=== PATIENT | male | born 1950 | race Caucasian/White ===

== ENCOUNTER → 2016-10-01 | Day surgery (SDC) | payer BC, OTHER ==
[2016-09-18 11:07] VITALS: Ht 170.2 cm; Wt 80.0 kg
[~2016-10-01] VITALS: Ht 170.2 cm; Wt 80.0 kg
[~2016-10-01] MED LIST: 500ML BSS 0.3ML EPI 1:1000PF IRRIG ONE; ACETAMINOPHEN 325 MG TAB PO PRN; AMVISC PLUS 0.8ML SYRINGE INT OCU ONE; ATROPINE SULFATE 0.1 MG/ML 5ML SYR IV PRN; BRIMONIDINE TART 0.2% OP SOLN PER DROP CHARGE ONE; BSS FLUSH ONE; ENDOCOAT 0.85ML SYRINGE INT OCU ONE; EpHEDrine SULFATE INJ 50 MG/ML AMP IV PRN; EpINEphrine INJ 1MG/ML AMP 1 MG/ML AMP ONE; LACTATED RINGER'S 1000ML 500 ML IV SCH; LIDOCAINE 4% OP SOLN DROP CHARGE ONE; LIDOCAINE 4% OP SOLN DROP CHARGE OPR SCH; LIDOCAINE HCL 1% MPF 2 ML VIAL ONE; MIDAZOLAM HCL 1 MG/ML 2ML VIAL ONE; MIX: 3ML BSS AND 1ML EPI(PF) TOP ONE; MOXIFLOXACIN OPH SOLN PER DROP CHARGE ONE; POTA99TA3 PO; POVIDONE-IODINE OP SOLN 30 ML BTL ONE; PROPARACAINE 0.5% OP SOLN PER DROP CHARGE OPR SCH; PROPARACAINE HCL 0.5% OP SOLN 15 ML BTL OPR ONE; TAMS0.4C38 PO; TOBRAMYCIN/DEXAMETHASONE OPH OINT PER APPLN CHARGE ONE
[2016-10-01] MEDS: PHENYLEPHRINE HCL 2.5% OP SOLN PER DROP CHARGE OPR SCH ×2 (09:30→09:35)
[2016-10-01] MEDS: TROPICAMIDE 1% OP SOLN PER DROP CHARGE OPR SCH ×2 (09:31→09:36)
[2016-10-01] MEDS: CYCLOPENTOLATE HCL 1% OP SOLN PER DROP CHARGE OPR SCH ×2 (09:32→09:37)
[2016-10-01] MEDS: KETOROLAC 0.5% OP SOLN PER DROP CHARGE OPR SCH ×2 (09:33→09:38)
[2016-10-01] MEDS: MOXIFLOXACIN OPH SOLN PER DROP CHARGE OPR SCH ×2 (09:34→09:44)
--- NOTE | 2016-10-01 10:24 | History & Physical Bridge - [place] ---
H&P Re-Evaluation Bridge Note: I have examined the patient, reviewed the History & Physical and in the interval since the performance of the History & Physical I have noted the following changes of clinical significance: No changes noted
--- NOTE | 2016-10-01 11:36 | [facility] Post Operative Brief Note ---
Immediate Operative Summary Operative Date Oct 01, 2016. Pre-Operative Diagnosis Cataract Right Eye Post-Operative Diagnosis Same Procedure(s) Performed Right Cataract Phacoemulsification With Intraocular Lens Implant; Toric Lens Surgeon Dr. Driscoll Bookkeeping Service Sales Agent Surgeon(s) None Estimated Blood Loss 0 mL Findings cataract right eye Specimens None Complication(s) None Disposition Recovery Room / PACU
--- NOTE | 2016-10-01 11:36 | Discharge Instructions-SurgCtr ---
Discharge Instructions Visit Reason for Visit: Cataract Right Eye Discharge Discharge Diagnosis / Problem: cataract right eye Discharge Goals Goal(s): Improve function Activity Recommendations Activity Limitations: per Instructions/Follow-up section Lifting Limitations: no more than 5 pounds Anesthesia . Post Anesthesia Instructions: If you have had General Anesthesia or IV Sedation: * Do not drive today. * Resume driving when surgeon permits. * Do not make important decisions or sign legal documents today. * Call surgeon for: 1. Temperature elevations greater than 101 degrees F. 2. Uncontrollable pain. 3. Excessive bleeding. 4. Persistent nausea and vomiting. 5. Medication intolerance (nausea, vomiting or rash). * For nausea and vomiting use only clear liquids such as: tea, soda, bouillon until nausea subsides, then gradually increase diet as tolerated. * If you have any concerns or questions, call your surgeon's office. If physician is unavailable and it is an emergency, call 911 or go to the nearest emergency room. . Instructions / Follow-Up Instructions / Follow-Up ACTIVITY RECOMMENDATIONS: * Light activities * You may walk outside, read, watch television. * Mild irritation and blurred vision are common for the first few days, redness around the white part of the eye is common. MEDICATIONS: Resume previous medications unless instructed otherwise by your surgeon. Eye drops (today and tomorrow): Gatifloxacin - one drop in operative eye every 2 hours while awake Prednisolone 1% - one drop in operative eye every 2 hours while awake Bromfenac - one drop in operative eye once daily SPECIAL CARE INSTRUCTIONS: * If any problems or concerns, please call Dr. Driscoll's office at . * Keep plastic shield taped over eye to sleep at night. * Keep plastic shield taped over eye except to administer eye drops. * Keep plastic shield on until office visit the following day. FOLLOW UP VISIT: Follow-up with Dr. Driscoll in the [place] office as scheduled. If not already scheduled, please call the office at . Diet Recommendations Home Diet: resume previous diet Procedures Procedures Performed: Right Cataract Phacoemulsification With Intraocular Lens Implant; Toric Lens Pending Studies Studies pending at discharge: no Medical Emergencies . Who to Call and When: Medical Emergencies: If at any time you feel your situation is an emergency, please call 911 immediately. . Non-Emergent Contact Non-Emergency issues call your: Landscape Architect And Planner . . "Provider Documentation" section prepared by Gorge Driscoll.
[2016-10-01 11:38] VITALS: TEMP 36.6
[2016-10-01 11:59] VITALS: BP 119/83; PULSE 58; O2SAT 99
--- NOTE | 2016-10-01 11:59 | Anesthesia Progress Nt - [facility] ---
Anesthesia Post Op Note Date & Time Oct 01, 2016 at 11:59 Vital Signs Pain Intensity: 0 Vital Signs Past 12 Hours Date Time Temp Pulse Resp B/P Pulse Ox O2 Delivery O2 Flow Rate FiO2 10/01/16 11:38 36.6 53 16 121/82 97 Room Air 10/01/16 11:03 60 16 140/96 98 Room Air 10/01/16 10:57 57 16 145/88 99 Room Air 10/01/16 09:25 36.6 69 18 131/94 96 Room Air Notes Mental Status: alert / awake / arousable, participated in evaluation Pt Amnestic to Procedure: Yes Nausea / Vomiting: adequately controlled Pain: adequately controlled Airway Patency, RR, SpO2: stable & adequate BP & HR: stable & adequate Hydration State: stable & adequate Anesthetic Complications: no major complications apparent
--- NOTE | 2016-10-01 11:59 | OPERATIVE REPORT ---
DATE OF OPERATION: 10/01/2016 PREOPERATIVE DIAGNOSES: Cataract and astigmatism, right eye. POSTOPERATIVE DIAGNOSES: Same. PROCEDURE PERFORMED: Phacoemulsification cataract extraction with Toric intraocular lens placement and femtosecond laser, right eye. COMPLICATIONS: None. ESTIMATED BLOOD LOSS: None. ANESTHESIA: Local with sedation. DESCRIPTION OF PROCEDURE: After informed consent was obtained in the holding area, the patient was taken to the femtosecond laser room, where the right eye was docked with the laser. The primary incision as well as the capsulorrhexis and prechop of the lens were completed by the femtosecond laser on the right eye. Primary incision was made at the 9 o'clock position of the patient's right eye. The patient was then taken to the operating room, where cardiac monitoring leads and oxygen by nasal cannula was administered by anesthesia. Gentle IV sedation was given and the patient's right eye was prepped and draped in the usual sterile fashion. A wire lid speculum was placed in the right eye and the operating microscope swung into position. Using 0.12 forceps and a supersharp blade, a paracentesis port was made at the 11 o'clock position of the patient's right eye. 1% nonpreserved lidocaine was injected into the anterior chamber for anesthesia. A 2.0-mm keratome blade was then used to enter the primary incision plane. A Leo spatula was ineffective at entering the femtosecond laser tract. EndoCoat and Amvisc were placed in the eye in a soft shell fashion and the free floating capsulorrhexis cap was removed with Utrata forceps. The BSS and hydrodissection cannula was then used to hydrodissect the lens nucleus away from the capsular bag. The phacoemulsification handpiece was then used in a stop and chop fashion to remove the lens nucleus. Irrigation aspiration handpiece was then used to remove the residual cortical material. The eye was then filled with Amvisc and an BRENDEN [id number], 18.5 Diopter intraocular lens was injected into the capsular bag. The primary incision was then hydrated and irrigation-aspiration handpiece was used to remove the viscoelastic material from the eye. At the conclusion of viscoelastic material removal, the lens was aligned along the 60 degree axis of the patient's right eye with the boss made in the preop. It should be noted that a mixture of 1 mL of nonpreserved epinephrine and 3 mL of BSS was injected into the eye at the beginning of the case to aid with pupillary dilation. At the conclusion, the wound was noted to be watertight. Wire lid speculum was removed from the eye. Vigamox, brimonidine and TobraDex ointment were placed on the eye and the eye was shielded. The patient tolerated the procedure well and was taken to recovery area in stable condition. I attest to the content of the Intraoperative Record and any orders documented therein. Any exceptions are noted below. MTDD
== END | disposition home or self-care (01) ==
LOC: X.SURG 09:10
PROVIDERS: ATTEND Ophthalmology
DX: H26.9 Unspecified cataract (principal); H52.201 Unspecified astigmatism, right eye; Z87.442 Personal history of urinary calculi

== ENCOUNTER → 2017-07-15 | Day surgery (SDC) | payer BC ==
[2017-06-21 11:17] VITALS: Ht 170.2 cm; Wt 79.5 kg
[~2017-07-15] VITALS: Ht 170.2 cm; Wt 79.5 kg
[~2017-07-15] MED LIST changes: +LIDOCAINE 4% OP SOLN DROP CHARGE OPL SCH; -LIDOCAINE 4% OP SOLN DROP CHARGE OPR SCH; +PROPARACAINE 0.5% OP SOLN PER DROP CHARGE OPL SCH; -PROPARACAINE 0.5% OP SOLN PER DROP CHARGE OPR SCH; +PROPARACAINE HCL 0.5% OP SOLN 15 ML BTL OPL ONE; -PROPARACAINE HCL 0.5% OP SOLN 15 ML BTL OPR ONE
[2017-07-15] MEDS: PHENYLEPHRINE HCL 2.5% OP SOLN PER DROP CHARGE OPL SCH ×2 (13:20→13:27)
[2017-07-15] MEDS: TROPICAMIDE 1% OP SOLN PER DROP CHARGE OPL SCH ×2 (13:21→13:28)
[2017-07-15] MEDS: CYCLOPENTOLATE HCL 1% OP SOLN PER DROP CHARGE OPL SCH ×2 (13:23→13:29)
[2017-07-15] MEDS: KETOROLAC 0.5% OP SOLN PER DROP CHARGE OPL SCH ×2 (13:24→13:30)
[2017-07-15] MEDS: MOXIFLOXACIN OPH SOLN PER DROP CHARGE OPL SCH ×2 (13:25→13:31)
[2017-07-15 15:16] VITALS: TEMP 36.6
--- NOTE | 2017-07-15 15:16 | Discharge Instructions-SurgCtr ---
Discharge Instructions Date of Service Jul 15, 2017. Visit Reason for Visit: Cataract Left Eye Discharge Discharge Diagnosis / Problem: cataract left eye Discharge Goals Goal(s): Improve function Activity Recommendations Activity Limitations: per Instructions/Follow-up section Lifting Limitations: no more than 5 pounds Anesthesia . Post Anesthesia Instructions: If you have had General Anesthesia or IV Sedation: * Do not drive today. * Resume driving when surgeon permits. * Do not make important decisions or sign legal documents today. * Call surgeon for: 1. Temperature elevations greater than 101 degrees F. 2. Uncontrollable pain. 3. Excessive bleeding. 4. Persistent nausea and vomiting. 5. Medication intolerance (nausea, vomiting or rash). * For nausea and vomiting use only clear liquids such as: tea, soda, bouillon until nausea subsides, then gradually increase diet as tolerated. * If you have any concerns or questions, call your surgeon's office. If physician is unavailable and it is an emergency, call 911 or go to the nearest emergency room. . Instructions / Follow-Up Instructions / Follow-Up ACTIVITY RECOMMENDATIONS: * Light activities * You may walk outside, read, watch television. * Mild irritation and blurred vision are common for the first few days, redness around the white part of the eye is common. MEDICATIONS: Resume previous medications unless instructed otherwise by your surgeon. Eye drops (today and tomorrow): Gatifloxacin - one drop in operative eye every 2 hours while awake Prednisolone 1% - one drop in operative eye every 2 hours while awake Bromfenac - one drop in operative eye once daily SPECIAL CARE INSTRUCTIONS: * If any problems or concerns, please call Dr. Driscoll's office at . * Keep plastic shield taped over eye to sleep at night. * Keep plastic shield taped over eye except to administer eye drops. * Keep plastic shield on until office visit the following day. FOLLOW UP VISIT: Follow-up with Dr. Driscoll in the [place] office as scheduled. If not already scheduled, please call the office at . Diet Recommendations Home Diet: resume previous diet Procedures Procedures Performed: Left Cataract Phacoemulsification With Intraocular Lens Implant; Toric Lens Pending Studies Studies pending at discharge: no Medical Emergencies . Who to Call and When: Medical Emergencies: If at any time you feel your situation is an emergency, please call 911 immediately. . Non-Emergent Contact Non-Emergency issues call your: Parachute Repairer . . "Provider Documentation" section prepared by Gorge Driscoll. .
--- NOTE | 2017-07-15 15:21 | [facility] Operative Report ---
Operative Report Operative Date Jul 15, 2017. Pre-Operative Diagnosis Cataract Left Eye Post-Operative Diagnosis Same Procedure(s) Performed Left Cataract Phacoemulsification With Intraocular Lens Implant; Toric Lens and femtosecond laser Surgeon Dr. Driscoll Mobile Application Tester Surgeon(s) None Estimated Blood Loss 0 Findings cataract left eye Specimens None Drains none Anesthesia local with sedation Complication(s) None Disposition Recovery Room / PACU Implants BRENDEN [id number] 18.5 Indications decreased vision left eye Description of Procedure After informed consent was obtained in the holding area the patient was wheeled back to the femtosecond laser room. The left eye was docked with the laser and the laser made the primary incision at the 3 o'clock position of the left eye as well as the capsulorrhexis and prechop of the lens. The operating room where cardiac monitoring leads and oxygen by nasal cannula was administered by Anesthesia. Gentle IV sedation was given, and the patient's left eye was prepped and draped in usual sterile fashion. A wire lid speculum was placed into the left eye and the operating microscope was swung into position. Using 0.12 forceps and a Supersharp blade a paracentesis port was made 2 o'clock hours away from the 3 o'clock position of the patient's left eye. 1% non-preserved Lidocaine was then injected into the anterior chamber for anesthesia. Flomax mix was injected into the anterior chamber. Enodcoat was injected into the anterior chamber. A 2.0 mm keratotome blade was then used to make a shelved clear corneal incision at the 3 o'clock position of the left eye as the femto incision was too anterior. Amvisc was injected into the anterior chamber and Utrata forceps were used to remove the curvilinear capsulorrhexis. BSS on a hydrodissection cannula was used to hydrodissect the lens nucleus away from the capsular bag. The phacoemulsification handpiece was then used in a stop and chop fashion to remove the lens nucleus. The irrigation and aspiration handpiece was then used to remove the residual cortical material. Amvisc was injected into the capsular bag and anterior chamber and a BRENDEN [id number] 18.5 Diopter intraocular lens was injected into the capsular bag. Irrigation and aspiration handpiece was used to remove the residual viscoelastic material. The lens was aligned with corneal markings on the 128 degree axis. The wounds were hydrated and noted to be watertight. The wire lid speculum was removed from the eye. Vigamox, Brimonidine, and TobraDex ointment were placed on the eye and it was shielded. It should be noted that EndoCoat was used extensively during the case to protect the cornea endothelium. DISPOSITION: The patient tolerated the procedure well and was wheeled to the post anesthesia care unit in stable condition. I attest to the content of the Intraoperative Record and any orders documented therein. Any exceptions are noted below. I attest to the content of the Intraoperative Record and any orders documented therein. Any exceptions are noted below.
[2017-07-15 15:37] VITALS: BP 100/70; PULSE 60; O2SAT 97
--- NOTE | 2017-07-15 15:43 | Anesthesia Progress Nt - [facility] ---
Anesthesia Post Op Note Date & Time Jul 15, 2017 at 15:43 Vital Signs Pain Intensity: 0 Vital Signs Past 12 Hours Date Time Temp Pulse Resp B/P (MAP) Pulse Ox O2 Delivery O2 Flow Rate FiO2 07/15/17 15:37 60 20 100/70 (80) 97 Room Air 07/15/17 15:16 36.6 63 16 117/75 (89) 97 Room Air 07/15/17 14:49 58 16 155/81 98 Room Air 07/15/17 14:45 59 16 146/84 98 Room Air 07/15/17 13:11 37 61 16 120/68 (85) 100 Room Air Notes Mental Status: alert / awake / arousable, participated in evaluation Pt Amnestic to Procedure: Yes Nausea / Vomiting: adequately controlled Pain: adequately controlled Airway Patency, RR, SpO2: stable & adequate BP & HR: stable & adequate Hydration State: stable & adequate Anesthetic Complications: no major complications apparent
== END | disposition home or self-care (01) ==
LOC: X.SURG 12:53
PROVIDERS: ATTEND Ophthalmology
DX: H25.12 Age-related nuclear cataract, left eye (principal); Z96.1 Presence of intraocular lens; Z86.12 Personal history of poliomyelitis